=== PATIENT | female | born 1940 ===

== ENCOUNTER 2023-01-20 12:58 | Outpatient (RCR) | payer MEDICARE, SELFPAY | END 2023-02-18 12:39 | disposition home or self-care (01) | LOC: OT 12:58 | PROVIDERS: PCP Family Medicine; Visit Provider Family Medicine | DX: I89.0 Lymphedema, not elsewhere classified (principal); I97.2 Postmastectomy lymphedema syndrome | CPT/HCPCS: 97140; 97165; 97530; 97535 ==

== ENCOUNTER 2023-11-10 10:13 | Outpatient (RCR) | payer MEDICARE, SELFPAY | END 2024-01-18 15:35 | disposition home or self-care (01) | LOC: OT 10:13 | PROVIDERS: PCP Family Medicine; Visit Provider Family Medicine | DX: I89.0 Lymphedema, not elsewhere classified (principal) | CPT/HCPCS: 97140; 97166 ==

== ENCOUNTER 2024-06-22 13:46 | Outpatient (RCR) | payer MEDICARE, SELFPAY | END 2024-06-23 07:42 | disposition home or self-care (01) | LOC: OT 13:46 | PROVIDERS: PCP Family Medicine; Visit Provider Family Medicine | DX: I89.0 Lymphedema, not elsewhere classified (principal) | CPT/HCPCS: 97165; 97530 ==